=== PATIENT | female | born 1995 | race Caucasian/White ===

== ENCOUNTER → 2018-03-13 | Outpatient (CLI) | payer OTHER ==
[~2018-03-13] MED LIST: DESO1TAB32 PO; PRED20TA6 PO
== END ==
LOC: AUD 15:30
PROVIDERS: ATTEND Otolaryngology
DX: H90.3 Sensorineural hearing loss, bilateral (principal)
CPT/HCPCS: 92557; 92570

== ENCOUNTER → 2018-03-14 | Outpatient (CLI) | payer OTHER | LOC: AUD 15:01 | PROVIDERS: ATTEND Otolaryngology | DX: H91.22 Sudden idiopathic hearing loss, left ear (principal) | CPT/HCPCS: 92552 ==